=== PATIENT | male | born 1955 | race Caucasian/White ===

== ENCOUNTER 2023-07-14 18:16 | Emergency (ER) | payer OTHER, SELFPAY ==
[2023-07-14] VITALS (12 sets, daily range): BP systolic 145–194; BP diastolic 96–124; BMI 24.9
[2023-07-14 18:45] LABS: % Eosinophils 3.4 % (0-6); % Immature Granulocytes 0.3 % (0-0.5); % Lymphocytes 25.4 % (20.5-51.1); % Monocytes 11.2 % (1.7-9.3); % Neutrophils 58.7 % (42.2-75.2); Absolute Basophils 0.1 10^3/uL (0-0.2); Absolute Eosinophils 0.3 10^3/uL (0-0.7); Absolute Monocytes 0.9 10^3/uL (0.1-0.6); Absolute Neutrophils 4.7 10^3/uL (1.4-6.5); Hematocrit 43.6 % (39.0-52.0); Hemoglobin 15.2 g/dL (13.0-18.0); Mean Corp Hgb Conc. 34.9 g/dL (33.0-37.0); Mean Corpuscular Hgb 31.3 pg (27.0-31.0); Mean Corpuscular Volume 89.9 fL (80.0-94.0); Mean Platelet Volume 10.6 fL (7.4-10.4); Nucleated Red Blood Cells % 0 % (-); Platelet Count 208 10^3/uL (130-400); Red Blood Cell Count 4.85 10^6/uL (4.70-6.10); Red Cell Dist. Width 12.7 % (11.5-14.5); White Blood Cell Count 7.9 10^3/uL (4.8-10.8)
[2023-07-14 19:00] LABS: ALT (SGPT) 37 U/L (0-50); AST (SGOT) 34 U/L (17-59); Albumin 4.8 g/dl (3.5-5.0); Alkaline Phosphatase 113 U/L (38-126); Blood Urea Nitrogen 24 mg/dl (9-20); Calcium 9.4 mg/dl (8.4-10.2); Carbon Dioxide 25 mmol/L (22-30); Chloride 106 mmol/L (98-107); Glucose 97 mg/dl (70-99); Potassium 4.5 mmol/L (3.5-5.1); Sodium 137 mmol/L (135-145); Total Bilirubin 1.1 mg/dl (0.2-1.3); Total Protein 7.6 g/dl (6.3-8.2); eGFR 50.08
[2023-07-14 19:10] LABS: Troponin I 0.022 ng/ml
--- NOTE | 2023-07-14 21:02 | ED.GENMED ---
History of Present Illness
<Nishi De La Paz PA-C - Last Filed: 07/15/23 00:18>
General
Chief Complaint: Cardiac Symptoms
Source: patient
Exam Limitations: none
Time Seen by Provider: 07/14/23 20:18
Nursing documentation reviewed up to this point in time: agreed with
Travel History
Have you had any contact with someone who has COVID-19?: No
Do you have any symptoms of coronavirus? Fever > 100 degrees, chills, cough, shortness of breath, sore throat, loss of taste or smell, muscle aches, or headache?: No
History of Present Illness
History of Present Illness:
68 y/o M
here for feeling lightheaded/wiped out today.
h/o nephrectomy in the past secnodary to renal carcinoma; had STEMI in 02/2023 requiring stents in [facility]; it appears his baseline cr was 1.5; had the cath during that admission and it went up to 2.0 but it's back to 1.5; he is on metoprolol 25 mg succs
bid, asa, plavix, and atorvastatin; his bp last week for his outpatient echo was 180/90; he was told to double the metoprolol and he did that, 50 mg po bid x 3 days but then was hypotensive 90s so he went bakc to 25 mg bid which he has been on and
monitoing bps, which were 110/70s; until today when he was higher. his readings today 130/80 and he felt off, wiped, lightheaded; hr 60s;
he now feels fine, but his bps are 170/110; he is notably anxious;
he feels stressed out
but now he has no sypmtmoms: denies cp, sob, lightheaded, headache, weakness, vision changes, neck pain, etc.
Past History
<Nishi De La Paz PA-C - Last Filed: 07/15/23 00:18>
Past History
ED Past Medical History: CAD, Cancer (kidney), HTN and Hypercholesterolemia
ED Past Surgical History: Orthopedic
Social History
Tobacco: Non-smoker
Personal:
Living: with family
Review of Systems
<Nishi De La Paz PA-C - Last Filed: 07/15/23 00:18>
Review of Systems
Allergies reviewed?: Yes
All Other Systems: Not applicable
Phy Exam
<Nishi De La Paz PA-C - Last Filed: 07/15/23 00:18>
Physical Exam
Physical Exam:
GENERAL: Alert , anxious
EYE: pupils equal and reactive
NECK: Supple
ENT: o/p clr, mmm.
CARDIAC: Regular rate and rhythm .no edema
LUNGS: Clear breath sounds bilaterally, no acute respiratory distress, no wheezes/rales/rhonchi
ABDOMEN: Soft, without focal tenderness, no r/g, no cvat, normal bowel sounds
NEUROLOGICAL: Alert and oriented, no focal neuro deficits
SKIN: Warm and dry, skin intact.
MUSCULOSKELETAL: No edema, well perfused. neg mela's sign
PSYCH: Normal and appropriate interaction.
Course
<Nishi De La Paz PA-C - Last Filed: 07/15/23 00:18>
Orders/Labs/Results
Orders:
Orders
07/14/23 18:17
Electrocardiogram (*1) Urgent
Reason for Study: Chest Pain
EKG- Treatment ONCE
07/14/23 18:34
CMP [Comprehensive Metabolic Panel] Urgent
Complete Blood Count/With Diff Urgent
Troponin I Urgent
07/14/23 20:49
Orthostatic VS- Treatment ONCE
07/14/23 21:01
Metoprolol [Lopressor] 25 mg PO NOW STA
Abnormal Lab Results
07/14/23
18:34
MCH 31.3 H pg
(27.0-31.0)
MPV 10.6 H fL
(7.4-10.4)
Absolute Monos (auto) 0.9 H 10^3/uL
(0.1-0.6)
Monocytes % 11.2 H %
(1.7-9.3)
BUN 24 H mg/dl
(9-20)
Creatinine 1.5 H mg/dL
(0.7-1.3)
07/14/23 18:34
07/14/23 18:34
Vital Signs
Initial and Last Documented VS:
Initial Vital Signs
Temp Pulse Resp BP Pulse Ox
98.0 F 76 16 170/100 98
07/14/23 18:24 07/14/23 18:24 07/14/23 18:24 07/14/23 18:24 07/14/23 18:24
Last Documented Vital Signs
Temp Pulse Resp BP Pulse Ox
98.0 F 68 10 163/98 98
07/14/23 18:24 07/14/23 23:00 07/14/23 23:00 07/14/23 23:00 07/14/23 23:00
<Stu Angulo, DO - Last Filed: 07/14/23 23:20>
Orders/Labs/Results
Orders:
Orders
07/14/23 18:17
Electrocardiogram (*1) Urgent
Reason for Study: Chest Pain
EKG- Treatment ONCE
07/14/23 18:34
CMP [Comprehensive Metabolic Panel] Urgent
Complete Blood Count/With Diff Urgent
Troponin I Urgent
07/14/23 20:49
Orthostatic VS- Treatment ONCE
07/14/23 21:01
Metoprolol [Lopressor] 25 mg PO NOW STA
Abnormal Lab Results
07/14/23
18:34
MCH 31.3 H pg
(27.0-31.0)
MPV 10.6 H fL
(7.4-10.4)
Absolute Monos (auto) 0.9 H 10^3/uL
(0.1-0.6)
Monocytes % 11.2 H %
(1.7-9.3)
BUN 24 H mg/dl
(9-20)
Creatinine 1.5 H mg/dL
(0.7-1.3)
07/14/23 18:34
07/14/23 18:34
Vital Signs
Initial and Last Documented VS:
Initial Vital Signs
Temp Pulse Resp BP Pulse Ox
98.0 F 76 16 170/100 98
07/14/23 18:24 07/14/23 18:24 07/14/23 18:24 07/14/23 18:24 07/14/23 18:24
Last Documented Vital Signs
Temp Pulse Resp BP Pulse Ox
98.0 F 68 10 163/98 98
07/14/23 18:24 07/14/23 23:00 07/14/23 23:00 07/14/23 23:00 07/14/23 23:00
<Nishi De La Paz PA-C - Last Filed: 07/15/23 00:18>
MDM/Problems Addressed
Differential Diagnosis Includes:
hypertension, anxiety, hypertenisve urgency
MDM/Problems Addressed:
68 y/o M with h/o CAD, stent in 02/2023
ischemic cardiomyopathy
on metoprolol 25 mg bid
last week had echo where he was told his BP ws too high and this set off his anxiety
wa s having no symptoms
was also told his EF was a littlel ower
he was told to bump up to 50 mg bid
he did that for 3 days and wrote bps down and dipped t 90/s0s and was lihghteaded so without tellin them he went back down to 25 mg bid
he has had normal bp readings 110s-120s until today when they were 130/90 and went up
he felt run down and lightheaded with standing
no cp, sob, headahce, vision changes
feels fine here
was very stressed out about all of the recent medical issues
ekg is changed from his stemi but no st elevation
trop neg
cr is baseline 1.5 but he is not plugged into nephrology and with 1 kidney, i did reach out to dr. shelley who recommedd outpatient w/u with renal dipulex etc
for bp - he was given his usual dose metoprolool 25 mg tonight and observed it to come down to 163/98
seen by ed attenidng
given a dose of hydralazine 10 mg tab to take if over 160/90 at home
d/c home
<Nishi De La Paz PA-C - Last Filed: 07/15/23 00:18>
*Critical Care Note
Total Time (30-74mins, 75-104mins- exclusive of procedures): Not Applicable
ED Attending Note
<Nishi De La Paz PA-C - Last Filed: 07/15/23 00:18>
-
Portions of this chart may have been created with voice recognition software.� Occasional wrong word or��sound alike� substitutions may have occurred due to the inherent limitations of voice recognition software.
<Stu Angulo DO - Last Filed: 07/14/23 23:20>
ED Attending Note
Patient seen and examined by attending physician: Yes
I performed the substantive portion of visit, reviewed & personally made and approve the management plan that is documented in note by myself or ELIZABETH.: Yes
ED Attending Note:
I have seen and evaluated the patient with a [id number] encounter. I have spoken to the advance practicer provider and involved in the medical history, the physical exam, medical decision making.
Evaluation and management service: agree unless noted differently below.
Results interpretation: agree unless noted differently below.
Focused HPI: 68-year-old male presenting with persistent elevated blood pressure. Patient does have only 1 kidney. He follows with cardiology for ACS. Given the elevated blood pressures in the office, he was instructed to double up with his
metoprolol. Due to mild weakness and fatigue and low blood pressure, he went back to his original metoprolol dosing. However, his blood pressure continues to trend upwards
Physical exam: Sitting in bed comfortably. Heart regular rate and rhythm. No leg edema
Medical Decision Making: Given his history of 1 kidney, renal made aware who will follow-up as an outpatient. He has cardiology appointment early next week. Will write for hydralazine as needed until cardiology can reassess his blood pressure
regimen
Discharge Plan
Departure
Patient Disposition: Home (Routine Discharge)
Date of Disposition: 07/14/23
Time of Disposition: 23:07
Patient with high blood pressure during this ER visit?: Yes
Covid-19: Not Applicable
Discharge Problem:
Hypertension
Instructions: High Blood Pressure (DC)
Prescriptions:
New
hydralazine 10 mg tablet
10 mg PO DAILY PRN (Reason: hypertension) Qty: 14 0RF
No Action
aspirin 81 mg Tablet,Chewable
81 mg PO DAILY Qty: 90 3RF
metoprolol succinate 25 mg Tablet Extended Release 24 Hr
25 mg PO BID Qty: 180 3RF
nitroglycerin [nitroglycerin] 0.4 mg tablet, sublingual
0.4 mg sublingual [id number] PRN (Reason: chest pain) Qty: 25 2RF
atorvastatin 80 mg Tablet
80 mg PO DAILY
Plavix
1 tab PO DAILY AT 0700
Referrals:
Ignacia Shelley MD [Active] - Follow up in 5-7 days (NEPHROLOGY)
Jaylon Irby DO [Family Provider] -
Activity Restrictions/Additional Instructions:
Continue to take your metoprolol 25 mg twice a day. You can check your blood pressure 2-3 times a day. In the middle of the afternoon when it is time to check your blood pressure sit there for 5 minutes before checking it and record the value. If
either the top number is above 160 or the bottom number is above 90 you can take the extra tablet of hydralazine, 1 tablet of 10 mg
See the physician scientist on Monday as planned. You did not need to follow-up with the mold unloader as an outpatient, they will want you to have additional testing to monitor that kidney. Return for severe worsening of symptoms like chest pain,
shortness of breath, passing out, severe headache, blurred vision or any concerns
Interventions
Interventions:
*General Assessment Last Done: 07/14/23 18:24
*ED COVID-19 Vaccine History Last Done: 07/14/23 18:24
*Nursing Disposition Last Done: 07/14/23 23:37
ED- Pulmonary Assessment Last Done: 07/14/23 20:29
ED- Cardiac Assessment Last Done: 07/14/23 20:29
Discharge Date and Time
Discharge Date/Time: 07/14/23 23:37
== END 2023-07-14 23:37 | disposition home or self-care (01) ==
LOC: EMR 18:16
PROVIDERS: EMERGENCY PHYSICIAN Student in an Organized Health Care Education/Training Program; FAMILY PHYSICIAN Internal Medicine
DX: I10 Essential (primary) hypertension (principal); R53.1 Weakness; R53.83 Other fatigue; R42 Dizziness and giddiness; R06.02 Shortness of breath; I25.10 Atherosclerotic heart disease of native coronary artery without angina pectoris; E78.00 Pure hypercholesterolemia, unspecified; I25.2 Old myocardial infarction; Z85.528 Personal history of other malignant neoplasm of kidney; Z95.5 Presence of coronary angioplasty implant and graft; Z90.5 Acquired absence of kidney; Z79.82 Long term (current) use of aspirin; Z79.02 Long term (current) use of antithrombotics/antiplatelets; Z88.2 Allergy status to sulfonamides; Z88.8 Allergy status to other drugs, medicaments and biological substances; Z91.013 Allergy to seafood
CPT/HCPCS: 99284; 80053; 84484; 85025; 93005

== ENCOUNTER → 2024-02-21 14:40 | Outpatient (REF) | payer OTHER, SELFPAY | LOC: HWRCS 14:40 | PROVIDERS: ATTENDING PHYSICIAN Internal Medicine Cardiovascular Disease; FAMILY PHYSICIAN Nurse Practitioner Family | DX: I25.5 Ischemic cardiomyopathy (principal) | CPT/HCPCS: 93306 ==

== ENCOUNTER → 2025-03-12 09:23 | Outpatient (REF) | payer OTHER, SELFPAY | LOC: HWRCS 09:23 | PROVIDERS: ATTENDING PHYSICIAN Student in an Organized Health Care Education/Training Program; FAMILY PHYSICIAN Nurse Practitioner Family | DX: I25.5 Ischemic cardiomyopathy (principal) | CPT/HCPCS: 93306 ==